=== PATIENT | male | born 1970 | race Caucasian/White ===

== ENCOUNTER 2021-02-04 10:03 | Outpatient (CLI) | payer MEDICARE | END 2021-02-04 10:04 | disposition home or self-care (01) | LOC: BICCT 10:03 | PROVIDERS: ATTEND Internal Medicine Gastroenterology | DX: K86.1 Other chronic pancreatitis (principal); R93.5 Abnormal findings on diagnostic imaging of other abdominal regions, including retroperitoneum | CPT/HCPCS: 74170 ==

== ENCOUNTER 2021-12-08 12:39 | Outpatient (CLI) | payer MEDICARE | END 2021-12-08 12:40 | disposition home or self-care (01) | LOC: RAD 12:39 | PROVIDERS: ATTEND Internal Medicine Critical Care Medicine | DX: R06.00 Dyspnea, unspecified (principal) | CPT/HCPCS: 71046 ==

== ENCOUNTER 2022-09-02 10:01 | Outpatient (CLI) | payer MEDICARE | END 2022-09-02 10:02 | disposition home or self-care (01) | LOC: RAD 10:01 | PROVIDERS: ATTEND Internal Medicine Critical Care Medicine | DX: R06.00 Dyspnea, unspecified (principal) | CPT/HCPCS: 71046 ==

== ENCOUNTER 2023-06-08 13:00 | Outpatient (CLI) | payer MEDICARE | END 2023-06-08 13:01 | disposition home or self-care (01) | LOC: RAD 13:00 | PROVIDERS: ATTEND Internal Medicine Critical Care Medicine | DX: R06.00 Dyspnea, unspecified (principal) | CPT/HCPCS: 71046 ==

== ENCOUNTER 2024-02-27 13:51 | Inpatient (IN) | payer MEDICARE, SELFPAY ==
[2024-02-27 14:27] LABS: #Basophils 0.06 10x3/uL (0.0-0.2); %Basophils 0.7 % (0.0-1.0); %Eosinophils 2.4 % (0.0-10.0); %Lymphocytes 22.7 % (21.0-51.0); %Monocytes 8.6 % (0.0-10.0); %Neutrophils 65.3 % (42.0-75.0); Hematocrit 47.9 % (42.0-52.0); Hemoglobin 14.5 g/dL (14.0-18.0); Mean Corpuscular HGB CONC 30.3 g/dL (32.0-36.0); Mean Corpuscular Hemoglobin 29.4 pg (27.0-31.0); Mean Corpuscular Volume 97.2 fL (78.0-98.0); Mean Platelet Volume 8.9 fL (7.4-10.4); Platelet Count 236 10x3/uL (130-400); RBC Distribution Width 13.8 % (11.5-14.5); Red Blood Cell (RBC) Count 4.93 mill/uL (4.70-6.10)
[2024-02-27 14:51] LABS: ALT (SGPT) 27 U/L (8-55); AST (SGOT) 22 U/L (5-34); Albumin 3.8 g/dL (3.5-5.0); Alkaline Phosphatase 79 U/L (40-110); Anion Gap 13 mmol/L (10-20); BUN (Urea Nitrogen) 5 mg/dL (8.4-25.7); Bilirubin, Total 0.4 mg/dL (0.2-1.2); Calc. Creatinine Clearance 0 mL/min (70-130); Calcium 9.8 mg/dL (7.8-10.44); Carbon Dioxide 36 mmol/L (22-29); Chloride 94 mmol/L (98-107); Estimated GFR 103; Globulin 3.3 g/dL (2.4-3.5); Glucose 126 mg/dL (70-105); Protein, Total 7.1 g/dL (6.0-8.3); Sodium 139 mmol/L (136-145)
[2024-02-27] MEDS ORDERED: methylPREDNISolone Sod Succ/PF 125 MG/2 ML VIAL ONE (14:54)
[2024-02-27] MEDS ORDERED: Ipratropium/Albuterol 3 ML NEB ONE (14:56)
[2024-02-27] MEDS ORDERED: Guaifenesin DM 100-10/5 ML UDCUP PO PRN (17:11)
[2024-02-27] MEDS ORDERED: Acetaminophen 325 MG TAB PO PRN (17:11)
[2024-02-27] MEDS ORDERED: Senokot S 8.6-50 MG TAB PO PRN (17:11)
[2024-02-27] MEDS ORDERED: Ondansetron PF 4 MG/2 ML Vial IVP PRN (17:11)
[2024-02-27] MEDS: Magnesium 2 GM/50 ML(in water) 2 GM in Premix 1 BAG IVPB SCH (18:27)
[2024-02-27] MEDS: Ipratropium/Albuterol 3 ML NEB NEB SCH (18:54)
[2024-02-27] MEDS: methylPREDNISolone Sod Succ 40 MG VIAL IVP SCH (22:00)
[2024-02-28 06:24] LABS: #Basophils Less than 0.03 10x3/uL (0.0-0.2); #Eosinophils Less than 0.03 10x3/uL (0.0-0.7); %Basophils 0.1 % (0.0-1.0); %Neutrophils 88.3 % (42.0-75.0); Hematocrit 46.4 % (42.0-52.0); Hemoglobin 14.1 g/dL (14.0-18.0); Mean Corpuscular HGB CONC 30.4 g/dL (32.0-36.0); Mean Corpuscular Hemoglobin 29.1 pg (27.0-31.0); Mean Corpuscular Volume 95.9 fL (78.0-98.0); Mean Platelet Volume 11.3 fL (7.4-10.4); Platelet Count 170 10x3/uL (130-400); RBC Distribution Width 13.9 % (11.5-14.5); Red Blood Cell (RBC) Count 4.84 mill/uL (4.70-6.10)
[2024-02-28 06:33] LABS: Anion Gap 16 mmol/L (10-20); BUN (Urea Nitrogen) 7 mg/dL (8.4-25.7); Calc. Creatinine Clearance 0 mL/min (70-130); Calcium 9.2 mg/dL (7.8-10.44); Carbon Dioxide 34 mmol/L (22-29); Chloride 93 mmol/L (98-107); Estimated GFR 105; Glucose 211 mg/dL (70-105); Potassium 4.7 mmol/L (3.5-5.1); Sodium 138 mmol/L (136-145)
[2024-02-28] MEDS ORDERED: OLODATEROL HCL INH SCH (09:00)
[2024-02-28] MEDS ORDERED: TIOTROPIUM BR INH SCH (09:00)
[2024-02-28] MEDS ORDERED: [UNRECOGNIZED DRUG - OTHER] INH SCH (09:00)
[2024-02-28] MEDS: Bupropion 150 MG SR.TAB PO SCH (09:21)
[2024-02-28] MEDS: Tamsulosin HCl 0.4 MG CAP PO SCH (09:21)
[2024-02-28] MEDS: Pantoprazole DR 40 MG TAB PO SCH (09:22)
[2024-02-28] MEDS: Enoxaparin 40 MG (0.4 mL) SYRINGE SC SCH (09:22)
[2024-02-28] MEDS: methylPREDNISolone Sod Succ 40 MG VIAL IVP SCH (14:51)
[2024-02-28] MEDS: LevoFLOXacin 500 MG TAB PO SCH (17:06)
[2024-02-28 18:33] VITALS: BMI 26.0
[2024-02-28] MEDS: Albuterol 2.5 MG (3 mL) NEB NEB PRN (19:13)
[2024-02-29] MEDS: LevoFLOXacin 500 MG TAB PO SCH (05:28)
[2024-02-29] MEDS: Ipratropium/Albuterol 3 ML NEB NEB SCH (15:12)
[2024-03-01] MEDS: Mometasone 100 MCG/Formoterol 5 MCG 120 PUFF INHALER INH SCH (19:24)
[2024-03-02 01:06] VITALS: TEMP 97.6
[2024-03-02 08:05] VITALS: BP 143/82
[2024-03-02] MEDS ORDERED: guaiFENesin ER 600 MG TAB PO SCH (21:00)
[2024-03-03] MEDS ORDERED: predniSONE 20 MG TAB PO SCH (08:00)
== END 2024-03-02 16:27 | disposition home or self-care (01) | DRG 189 ==
LOC: ERS 13:51 → T4-B 17:11 → OBSVTOIN 02-28 12:42
PROVIDERS: ADMIT Hospitalist; ATTEND Family Medicine
DX: J96.21 Acute and chronic respiratory failure with hypoxia (principal); J44.1 Chronic obstructive pulmonary disease with (acute) exacerbation; K21.9 Gastro-esophageal reflux disease without esophagitis; Z79.899 Other long term (current) drug therapy; Z82.49 Family history of ischemic heart disease and other diseases of the circulatory system; F17.210 Nicotine dependence, cigarettes, uncomplicated; F32.A Depression, unspecified
CPT/HCPCS: 36415; 71045; 71250; 80048; 80053; 82103; 83880; 85025; 85379; 93005; 94640; 94664; 96374; J1650; J2919; J3475; J7611; J7620

== ENCOUNTER 2025-03-14 14:58 | Inpatient (IN) | payer MEDICARE, SELFPAY ==
[2025-03-14 17:04] LABS: #Basophils 0.07 10x3/uL (0.0-0.2); #Eosinophils 0.18 10x3/uL (0.0-0.7); #Monocytes 0.74 10x3/uL (0.11-0.59); #Neutrophils 7.61 10x3/uL (1.40-6.50); %Basophils 0.7 % (0.0-1.0); %Eosinophils 1.7 % (0.0-10.0); %Lymphocytes 17.0 % (21.0-51.0); %Monocytes 7.1 % (0.0-10.0); %Neutrophils 73.1 % (42.0-75.0); Hematocrit 45.8 % (42.0-52.0); Hemoglobin 14.0 g/dL (14.0-18.0); Mean Corpuscular Hemoglobin 30.8 pg (27.0-31.0); Mean Corpuscular Volume 100.7 fL (78.0-98.0); Platelet Count 215 10x3/uL (130-400); Red Blood Cell (RBC) Count 4.55 mill/uL (4.70-6.10); White Blood Cell (WBC) Count 10.41 10x3/uL (4.8-10.8)
[2025-03-14 17:04] LABS: Base Excess 13.1 mEq/L (-2.0 to +3.0); Calcium, Ionized (venous) 1.22 mmol/L (1.16-1.32); Chloride (VBG) 90 mmol/L (98-106); Hematocrit-VBG 45 % (42.0-52.0); Hemoglobin (Hb) 15.3 g/dL (13.1-17.2); Potassium (VBG) 3.80 mmol/L (3.70-5.30); Sodium 143 mmol/L (133-146)
[2025-03-14 17:08] LABS: Actual Bicarbonate (HCO3v) 45.6 mEq/L (22-28)
[2025-03-14 17:24] LABS: ALT (SGPT) 15 U/L (Less than 45); AST (SGOT) 18 U/L (11-34); Albumin 4.4 g/dL (3.1-4.5); Alkaline Phosphatase 72 U/L (40-110); Anion Gap 12 mmol/L (10-20); BUN (Urea Nitrogen) 6 mg/dL (8.4-25.7); Bilirubin, Total 0.4 mg/dL (0.3-1.2); Calc. Creatinine Clearance 0 mL/min (70-130); Calcium 10.0 mg/dL (7.8-10.44); Carbon Dioxide 43 mmol/L (22-29); Chloride 91 mmol/L (98-107); Globulin 2.8 g/dL (2.4-3.5); Glucose 136 mg/dL (70-105); Lipase 13 U/L (8-78); Potassium 4.0 mmol/L (3.5-5.1); Sodium 142 mmol/L (136-145)
[2025-03-14 23:29] LABS: Analyzer IN Cardio ER; Base Excess 14.0 mEq/L (-2.0 to +3.0); Calcium, Ionized (venous) 1.12 mmol/L (1.16-1.32); Chloride (VBG) 90 mmol/L (98-106); Hematocrit-VBG 42 % (42.0-52.0); Hemoglobin (Hb) 14.3 g/dL (13.1-17.2); Potassium (VBG) 4.35 mmol/L (3.70-5.30); Sodium 139 mmol/L (133-146)
[2025-03-14 23:31] LABS: Actual Bicarbonate (HCO3v) 45.5 mEq/L (22-28)
[2025-03-15 00:41] VITALS: BMI 25.7
[2025-03-15] MEDS ORDERED: Acetaminophen 325 MG TAB PO PRN (01:12)
[2025-03-15] MEDS ORDERED: Bisacodyl 10 MG SUPP PR PRN (01:12)
[2025-03-15] MEDS ORDERED: Senokot S 8.6-50 MG TAB PO PRN (01:12)
[2025-03-15] MEDS ORDERED: Ondansetron PF 4 MG/2 ML Vial IVP PRN (01:12)
[2025-03-15] MEDS ORDERED: Electrolyte Replacement Protocol 1 EACH FS SCH (01:15)
[2025-03-15] MEDS ORDERED: PHOS-NAK 1 PKT PACK PO PRN (01:30)
[2025-03-15] MEDS ORDERED: Potassium Chloride 20 MEQ in Premix 1 BAG IVPB PRN (01:30)
[2025-03-15] MEDS: Azithromycin 500 MG in Sodium Chloride 0.9% 250 ML 250 ML IVPB SCH (02:41)
[2025-03-15] MEDS: Melatonin 3 MG TAB PO PRN (02:41)
[2025-03-15] MEDS: cefTRIAXone\\ROCEPHIN 1 GM in Sodium Chloride 0.9% 100 ML IVPB SCH (03:51)
[2025-03-15 04:30] LABS: #Basophils Less than 0.03 10x3/uL (0.0-0.2); #Eosinophils Less than 0.03 10x3/uL (0.0-0.7); #Monocytes 0.06 10x3/uL (0.11-0.59); #Neutrophils 8.56 10x3/uL (1.40-6.50); %Basophils 0.2 % (0.0-1.0); %Eosinophils 0.0 % (0.0-10.0); %Lymphocytes 5.9 % (21.0-51.0); %Monocytes 0.7 % (0.0-10.0); %Neutrophils 92.9 % (42.0-75.0); Hematocrit 42.4 % (42.0-52.0); Hemoglobin 12.5 g/dL (14.0-18.0); Mean Corpuscular Hemoglobin 29.9 pg (27.0-31.0); Mean Corpuscular Volume 101.4 fL (78.0-98.0); Platelet Count 202 10x3/uL (130-400); Red Blood Cell (RBC) Count 4.18 mill/uL (4.70-6.10); White Blood Cell (WBC) Count 9.21 10x3/uL (4.8-10.8)
[2025-03-15 05:00] LABS: Anion Gap 16 mmol/L (10-20); BUN (Urea Nitrogen) 13 mg/dL (8.4-25.7); Calc. Creatinine Clearance 177 mL/min (70-130); Calcium 9.2 mg/dL (7.8-10.44); Carbon Dioxide 38 mmol/L (22-29); Chloride 90 mmol/L (98-107); Glucose 293 mg/dL (70-105); Potassium 4.5 mmol/L (3.5-5.1); Sodium 139 mmol/L (136-145)
[2025-03-15] MEDS: Mometasone 200 MCG/Formoterol 5 MCG 120 PUFF INHALER INH SCH (07:08)
[2025-03-15] MEDS ORDERED: OLODATEROL HCL INH SCH (09:00)
[2025-03-15] MEDS ORDERED: TIOTROPIUM BR INH SCH (09:00)
[2025-03-15] MEDS ORDERED: [UNRECOGNIZED DRUG - OTHER] INH SCH (09:00)
[2025-03-15] MEDS: Enoxaparin 40 MG (0.4 mL) SYRINGE SC SCH (09:06)
[2025-03-15] MEDS: Gabapentin 300 MG CAP PO SCH (09:07)
[2025-03-15] MEDS: Famotidine 20 MG TAB PO SCH (09:07)
[2025-03-16 04:29] LABS: #Basophils Less than 0.03 10x3/uL (0.0-0.2); #Eosinophils Less than 0.03 10x3/uL (0.0-0.7); #Monocytes 0.43 10x3/uL (0.11-0.59); #Neutrophils 12.00 10x3/uL (1.40-6.50); %Basophils 0.2 % (0.0-1.0); %Eosinophils 0.0 % (0.0-10.0); %Lymphocytes 5.3 % (21.0-51.0); %Monocytes 3.3 % (0.0-10.0); %Neutrophils 90.7 % (42.0-75.0); Hematocrit 41.7 % (42.0-52.0); Hemoglobin 12.5 g/dL (14.0-18.0); Mean Corpuscular Hemoglobin 30.3 pg (27.0-31.0); Mean Corpuscular Volume 101.0 fL (78.0-98.0); Platelet Count 231 10x3/uL (130-400); Red Blood Cell (RBC) Count 4.13 mill/uL (4.70-6.10); White Blood Cell (WBC) Count 13.21 10x3/uL (4.8-10.8)
[2025-03-16 04:55] LABS: Anion Gap 18 mmol/L (10-20); BUN (Urea Nitrogen) 13 mg/dL (8.4-25.7); Calc. Creatinine Clearance 157 mL/min (70-130); Calcium 9.4 mg/dL (7.8-10.44); Carbon Dioxide 34 mmol/L (22-29); Chloride 91 mmol/L (98-107); Glucose 358 mg/dL (70-105); Magnesium 1.8 mg/dL (1.6-2.6); Potassium 4.5 mmol/L (3.5-5.1); Sodium 138 mmol/L (136-145)
[2025-03-16] MEDS: Magnesium 2 GM/50 ML(in water) 2 GM in Premix 1 BAG IVPB PRN (06:33)
[2025-03-16] MEDS ORDERED: Dextrose 50% Abboject 50 ML SYRINGE SLOW IVP PRN (09:05)
[2025-03-16] MEDS ORDERED: Glucagon 1 MG/ML KIT IM PRN (09:05)
[2025-03-16] MEDS: Insulin Glargine 30 UNITS/0.3 ML VIAL SC SCH (21:48)
[2025-03-17] MEDS: cefTRIAXone (ROCEPHIN) 1 GM VIAL ONE (03:24)
[2025-03-17 04:38] LABS: #Basophils Less than 0.03 10x3/uL (0.0-0.2); #Eosinophils Less than 0.03 10x3/uL (0.0-0.7); #Monocytes 0.30 10x3/uL (0.11-0.59); #Neutrophils 11.43 10x3/uL (1.40-6.50); %Basophils 0.1 % (0.0-1.0); %Eosinophils 0.0 % (0.0-10.0); %Lymphocytes 5.1 % (21.0-51.0); %Monocytes 2.4 % (0.0-10.0); %Neutrophils 91.9 % (42.0-75.0); Hematocrit 40.3 % (42.0-52.0); Hemoglobin 12.6 g/dL (14.0-18.0); Mean Corpuscular Hemoglobin 30.4 pg (27.0-31.0); Mean Corpuscular Volume 97.3 fL (78.0-98.0); Platelet Count 225 10x3/uL (130-400); Red Blood Cell (RBC) Count 4.14 mill/uL (4.70-6.10); White Blood Cell (WBC) Count 12.44 10x3/uL (4.8-10.8)
[2025-03-17 04:48] LABS: Magnesium 2.1 mg/dL (1.6-2.6)
[2025-03-17] MEDS: FLU (Fluarix Triv) 25-26 (6MOS UP)/PF 45 MCG/0.5 ML Syringe IM ONE (09:01)
[2025-03-17] MEDS: Insulin Glargine 30 UNITS/0.3 ML VIAL SC SCH (09:27)
[2025-03-18 10:03] LABS: #Basophils Less than 0.03 10x3/uL (0.0-0.2); #Eosinophils Less than 0.03 10x3/uL (0.0-0.7); #Monocytes 0.96 10x3/uL (0.11-0.59); #Neutrophils 9.37 10x3/uL (1.40-6.50); %Basophils 0.1 % (0.0-1.0); %Eosinophils 0.0 % (0.0-10.0); %Lymphocytes 9.3 % (21.0-51.0); %Monocytes 8.4 % (0.0-10.0); %Neutrophils 81.9 % (42.0-75.0); Hematocrit 39.4 % (42.0-52.0); Hemoglobin 12.1 g/dL (14.0-18.0); Mean Corpuscular Hemoglobin 30.4 pg (27.0-31.0); Mean Corpuscular Volume 99.0 fL (78.0-98.0); Platelet Count 211 10x3/uL (130-400); Red Blood Cell (RBC) Count 3.98 mill/uL (4.70-6.10); White Blood Cell (WBC) Count 11.44 10x3/uL (4.8-10.8)
[2025-03-18 10:19] LABS: Anion Gap 13 mmol/L (10-20); BUN (Urea Nitrogen) 16 mg/dL (8.4-25.7); Calc. Creatinine Clearance 184 mL/min (70-130); Calcium 8.9 mg/dL (7.8-10.44); Carbon Dioxide 34 mmol/L (22-29); Chloride 96 mmol/L (98-107); Glucose 207 mg/dL (70-105); Potassium 4.3 mmol/L (3.5-5.1); Sodium 139 mmol/L (136-145)
[2025-03-18] MEDS: predniSONE 20 MG TAB PO SCH (12:16)
[2025-03-18] MEDS: Cefdinir 300 MG CAP PO SCH (12:16)
[2025-03-19 04:26] LABS: #Basophils Less than 0.03 10x3/uL (0.0-0.2); #Eosinophils Less than 0.03 10x3/uL (0.0-0.7); #Monocytes 0.91 10x3/uL (0.11-0.59); #Neutrophils 7.88 10x3/uL (1.40-6.50); %Basophils 0.1 % (0.0-1.0); %Eosinophils 0.2 % (0.0-10.0); %Lymphocytes 16.3 % (21.0-51.0); %Monocytes 8.6 % (0.0-10.0); %Neutrophils 74.4 % (42.0-75.0); Hematocrit 41.0 % (42.0-52.0); Hemoglobin 12.5 g/dL (14.0-18.0); Mean Corpuscular Hemoglobin 30.1 pg (27.0-31.0); Mean Corpuscular Volume 98.8 fL (78.0-98.0); Platelet Count 223 10x3/uL (130-400); Red Blood Cell (RBC) Count 4.15 mill/uL (4.70-6.10); White Blood Cell (WBC) Count 10.58 10x3/uL (4.8-10.8)
[2025-03-19 04:34] LABS: Anion Gap 12 mmol/L (10-20); BUN (Urea Nitrogen) 16 mg/dL (8.4-25.7); Calc. Creatinine Clearance 184 mL/min (70-130); Calcium 8.9 mg/dL (7.8-10.44); Carbon Dioxide 37 mmol/L (22-29); Chloride 96 mmol/L (98-107); Glucose 158 mg/dL (70-105); Potassium 4.0 mmol/L (3.5-5.1); Sodium 141 mmol/L (136-145)
[2025-03-21 12:13] VITALS: BP 116/74; TEMP 97.8
== END 2025-03-21 12:34 | disposition home or self-care (01) | DRG 189 ==
LOC: ERS 14:58 → INTOOBSV 23:19 → PCU 23:19 → OBSVTOIN 03-15 19:00
PROVIDERS: ADMIT Internal Medicine; ATTEND Internal Medicine
DX: J96.22 Acute and chronic respiratory failure with hypercapnia (principal); J44.1 Chronic obstructive pulmonary disease with (acute) exacerbation; J96.21 Acute and chronic respiratory failure with hypoxia; K21.9 Gastro-esophageal reflux disease without esophagitis; F17.210 Nicotine dependence, cigarettes, uncomplicated; F10.20 Alcohol dependence, uncomplicated; F12.10 Cannabis abuse, uncomplicated; F32.A Depression, unspecified; R73.9 Hyperglycemia, unspecified; Z99.81 Dependence on supplemental oxygen; Z79.899 Other long term (current) drug therapy
CPT/HCPCS: 36415; 36416; 71045; 80048; 80053; 82805; 83036; 83690; 83735; 83880; 84484; 85025; 85379; 93005; 94640; 94660; 96374; 96375; 96376; G0378; J0456; J0696; J1650; J1815; J2919; J3475; J7050; J7120; J7512; J7626